=== PATIENT | female | born 1980 | race Caucasian/White ===

== ENCOUNTER 2016-12-12 16:18 | Emergency (ER) | payer BC ==
[~2016-12-12] VITALS: Ht 165.1 cm; Wt 72.7 kg
[2016-12-12] MEDS ORDERED: ZYRT10CA PO (16:26)
[2016-12-12] MEDS ORDERED: PROZ40CA PO (16:26)
[2016-12-12] MEDS ORDERED: ASPIRIN 81 MG CHEW TABLET PO ONE (16:45)
[2016-12-12] MEDS ORDERED: ONDANSETRON 4MG/2ML VIAL (J2405) IV ONE (16:45)
[2016-12-12] MEDS ORDERED: MORPHINE 4 MG/ML 1ML SYRINGE IV PRN (16:45)
[2016-12-12 16:55] LABS: BASO % 0.6 % (0.0-1.0); EOS # 0.4 K/mm3 (0.0-0.50); EOS % 7.2 % (0.0-3.0); LARGE UNSTAINED CELL # 0.1 K/mm3 (0.0-0.4); LARGE UNSTAINED CELL % 2.1 % (0.0-4.0); LYMPH # 1.9 K/mm3 (1.5-4.5); LYMPH % 32.3 % (24.0-44.0); MEAN CORPUSCULAR HEMOGLOBIN 29.8 pg (27.0-33.0); MEAN CORPUSCULAR HGB CONC 33.8 g/dl (32.0-36.5); MEAN CORPUSCULAR VOLUME 88.1 fl (80.0-96.0); MONO # 0.3 K/mm3 (0.0-0.8); MONO % 5.5 % (0.0-5.0); NEUTROPHILS # 3.1 K/mm3 (1.8-7.7); NEUTROPHILS % 52.3 % (36.0-66.0); PLATELET COUNT, AUTOMATED 264 k/mm3 (150-450); RED CELL DISTRIBUTION WIDTH 13.4 % (11.5-14.5); WHITE BLOOD COUNT 5.9 K/mm3 (4.0-10.0)
[2016-12-12] MEDS ORDERED: GI COCKTAIL 50ML BTL(HYOSCYAMINE/MAALOX/LIDOCAINE VISCOUS)(1:3:1) PO ONE (17:00)
[2016-12-12 17:01] LABS: INR 0.92
[2016-12-12 17:17] LABS: ERYTHROCYTE SEDIMENTATION RATE 2 mm/hr (0-20)
--- NOTE | 2016-12-12 17:22 | REP ---
Clinical: Chest pain . Comparison: 12/30/2012 . Findings: The mediastinum and cardiac silhouette are stable and within normal limits for portable technique. The lung koroma are clear without acute consolidation, effusion, or pneumothorax. Skeletal structures are intact. Impression: No acute cardiopulmonary process appreciated. Signed by Jonn Garcia MD 12/12/2016 05:14 P
[2016-12-12 17:23] LABS: ALBUMIN 3.8 GM/DL (3.2-5.2); ALBUMIN/GLOBULIN RATIO 1.23 (1.00-1.93); ALKALINE PHOSPHATASE 72 U/L (45-117); ALT/SGPT 19 U/L (12-78); ANION GAP 12 MEQ/L (8-16); AST/SGOT 11 U/L (15-37); BILIRUBIN,DIRECT < 0.1 MG/DL (0.0-0.2); BILIRUBIN,TOTAL 0.2 MG/DL (0.2-1.0); BLOOD UREA NITROGEN 17 MG/DL (7-18); CALCIUM LEVEL 9.1 MG/DL (8.5-10.1); CARBON DIOXIDE LEVEL 26 MEQ/L (21-32); CHLORIDE LEVEL 104 MEQ/L (98-107); CREATININE FOR GFR 0.79 MG/DL (0.55-1.02); GLOMERULAR FILTRATION RATE > 60.0 (>60); GLUCOSE, FASTING 82 MG/DL (70-105); POTASSIUM SERUM 3.9 MEQ/L (3.5-5.1); SODIUM LEVEL 142 MEQ/L (136-145); TOTAL PROTEIN 6.9 GM/DL (6.4-8.2)
[2016-12-13 00:32] VITALS: BP 139/92
--- NOTE | 2016-12-13 07:51 | ECGEPIP ---
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
== END 2016-12-13 00:34 | disposition home or self-care (01) ==
LOC: M ED 16:18
DX: R07.9 Chest pain, unspecified (principal)
CPT/HCPCS: 36415; 71010; 80048; 80076; 82550; 82553; 83880; 84443; 85025; 85379; 85610; 85652; 93005; 93041; 94760; 96374; 96375; 99285; J2405

== ENCOUNTER 2017-07-20 19:08 | Emergency (ER) | payer BC ==
[2017-07-20] MEDS: DERMABOND TOPICAL SKIN ADHESIVE TOP (19:45)
[2017-07-20] MEDS: ADACEL/BOOSTRIX VACCINE (DIPHTH/PERTUSS/ACELL/TETANUS)0.5ML SYR (90715) IM (19:52)
== END 2017-07-20 20:04 | disposition home or self-care (01) ==
LOC: M ED 19:08
DX: S61.216A Laceration without foreign body of right little finger without damage to nail, initial encounter (principal); W26.0XXA Contact with knife, initial encounter; Y92.099 Unspecified place in other non-institutional residence as the place of occurrence of the external cause; Y93.9 Activity, unspecified; Y99.9 Unspecified external cause status; F41.9 Anxiety disorder, unspecified; F32.9 Major depressive disorder, single episode, unspecified
CPT/HCPCS: 90715

== ENCOUNTER → 2017-08-06 | Outpatient (REF) | payer BC | LOC: M LAB REF 16:24 | DX: J02.9 Acute pharyngitis, unspecified (principal) | CPT/HCPCS: 87077 ==